=== PATIENT | male | born 1965 | race African-American/Black ===

== ENCOUNTER 2017-01-18 04:02 | Emergency (ER) | payer BC ==
[~2017-01-18] VITALS: Ht 185.4 cm; Wt 97.5 kg
--- NOTE | 2017-01-18 04:28 | NUR ---
BIBSELF C/O RIGHT SIDE OF HEAD; THROBBING PAIN SINCE 2:30AM. PT AOX3 RR EVEN AND UNLABORED. NO SOB NOTED. NAD NOTED. NO NVD AT THIS TIME. PT NOT DIAPHORETIC. PT GOWNED AND PLACED ON MONITOR. DR. MEDEL MADE AWARE.
[2017-01-18] MEDS ORDERED: METOCLOPRAMIDE HCL 10 MG/2 ML VIAL IV ONE (04:30)
[2017-01-18] MEDS ORDERED: SUMATRIPTAN SUCCINATE 6 MG/0.5 ML VIAL SQ ONE ×2 (04:30→04:38)
[2017-01-18] MEDS ORDERED: IV NS 0.9% 1,000 ML BAG IV ONE (04:30)
[2017-01-18] MEDS ORDERED: METOCLOPRAMIDE HCL 10 MG/2 ML VIAL ONE (04:38)
--- NOTE | 2017-01-18 05:01 | NUR ---
PT TO CT.
--- NOTE | 2017-01-18 05:08 | NUR ---
PT RETURNED FROM CT.
[2017-01-18] MEDS ORDERED: KETOROLAC TROMETHAMINE INJ 30 MG/ML VIAL IV ONE (05:30)
[2017-01-18] MEDS ORDERED: hydrALAZINE HCL IV 20 MG VIAL IV ONE (05:30)
[2017-01-18] MEDS ORDERED: hydrALAZINE HCL IV 20 MG VIAL ONE (05:36)
[2017-01-18 06:18] VITALS: BP 163/103
--- NOTE | 2017-01-18 06:18 | NUR ---
IV removed. Catheter intact and site benign. Pressure and 4x4 applied to site. No bleeding noted. Patient discharged to home in stable condition. Written and verbal after care instructions given. Patient verbalizes understanding of instruction. ambulatory with a steady gait.
== END 2017-01-18 06:19 | disposition home or self-care (01) ==
LOC: ER 04:02
DX: R51 Headache (principal); I10 Essential (primary) hypertension
CPT/HCPCS: 70450-TC; A4606; J0360; J2765; J3030; J7030; Z7610